=== PATIENT | male | born 1960 | race Caucasian/White ===

== ENCOUNTER 2022-01-04 16:00 | Emergency (ER) | payer OTHER ==
[~2022-01-04] VITALS: Ht 175.3 cm; Wt 90.0 kg
[2022-01-04 17:33] LABS: CLARITY URINE CLEAR (CLEAR); COLOR URINE DARK YELLOW (YELLOW); KETONES URINE 1+ (NEGATIVE); LEUKOCYTE ESTERASE URINE 2+ (NEGATIVE); NITRITE URINE NEGATIVE (NEGATIVE); OCCULT BLOOD URINE NEGATIVE (NEGATIVE); PH URINE 5.5 (4.5-8.0); PROTEIN URINE TRACE (NEGATIVE); SPECIFIC GRAVITY URINE 1.033 (1.005-1.030)
[2022-01-04 17:36] LABS: HEMATOCRIT. 36.9 % (42.0-52.0); HEMOGLOBIN. 12.1 g/dL (14.0-18.0); MEAN CORPUSCULAR HEMOGLOBIN 28.1 pg (28.0-32.0); MEAN CORPUSCULAR VOLUME 85.5 fL (80.0-94.0); MEAN PLATELET VOLUME 9.3 fl (7.4-10.4); PLATELET 162 x1000/uL (130-400); RED BLOOD CELL COUNT 4.32 mill/uL (4.7-6.1); RED CELL DISTRIBUTION WIDTH 15.7 % (11.6-14.6)
[2022-01-04 17:46] LABS: CHLORIDE 110 mEq/L (98-107)
[2022-01-04 17:50] LABS: ETHANOL BLOOD < 10 mg/dL
[2022-01-04 17:57] LABS: *BARBITURATES SCREEN URINE NEGATIVE (NEGATIVE); CANNABINOID URINE SCREEN PRESUMTIVE POSITIVE (NEGATIVE); OPIATES URINE SCREEN NEGATIVE (NEGATIVE); PHENCYCLIDINE URINE SCREEN NEGATIVE (NEGATIVE)
[2022-01-04 17:58] LABS: *AMPHETAMINES SCREEN URINE NEGATIVE (NEGATIVE); *BENZODIAZEPINES SCREEN URINE NEGATIVE (NEGATIVE); *COCAINE SCREEN URINE NEGATIVE (NEGATIVE); METHADONE URINE SCREEN NEGATIVE (NEGATIVE)
[2022-01-04] MEDS ORDERED: LORAZEPAM 1MG TABLET PO ONE (18:00)
[2022-01-04] MEDS ORDERED: OLANZAPINE 10 MG/VIAL IM ONE (18:00)
[2022-01-04 19:21] LABS: PLATELET ESTIMATE NORMAL
[2022-01-05] MEDS ORDERED: LORAZEPAM 2MG/ML CPJ IV STA (07:47)
[2022-01-05] MEDS ORDERED: HALOPERIDOL LACTATE 5MG/ML VIAL IM STA (07:47)
[2022-01-05] MEDS: CHLORPROMAZINE HCL 25 MG TABLET PO SCH (16:25)
[2022-01-05] MEDS: DIVALPROEX SODIUM 250MG DR TABLET PO SCH (16:25)
[2022-01-06] MEDS: CHLORPROMAZINE HCL 25 MG TABLET PO SCH ×3 (00:20→14:39)
[2022-01-06] MEDS: DIVALPROEX SODIUM 250MG DR TABLET PO SCH ×3 (00:21→14:39)
[2022-01-06] MEDS ORDERED: ACETAMINOPHEN 325MG TABLET PO ONE (08:30)
[2022-01-06] MEDS ORDERED: LORAZEPAM 1MG TABLET PO ONE (08:30)
[2022-01-06 15:13] VITALS: BP 119/68
[2022-01-06] MEDS ORDERED: TEMAZEPAM 15MG CAPSULE PO PRN (21:00)
== END 2022-01-06 17:37 ==
LOC: ER 16:00
DX: F31.30 Bipolar disorder, current episode depressed, mild or moderate severity, unspecified (principal); R45.851 Suicidal ideations; Z20.822 Contact with and (suspected) exposure to COVID-19; G47.00 Insomnia, unspecified; R73.9 Hyperglycemia, unspecified; R03.0 Elevated blood-pressure reading, without diagnosis of hypertension; F12.90 Cannabis use, unspecified, uncomplicated; R51.9 Headache, unspecified; S00.83XA Contusion of other part of head, initial encounter; X58.XXXA Exposure to other specified factors, initial encounter; Y93.89 Activity, other specified; Y92.89 Other specified places as the place of occurrence of the external cause; Z91.14 Patient's other noncompliance with medication regimen; Z75.1 Person awaiting admission to adequate facility elsewhere
CPT/HCPCS: 36415; 70450; 80053; 80305; 80307; 80320; 80329; 81003; 85025; 96372; 96374; 99285; C9803; J1630; J2060; J3490; U0003; U0005; Q0161; G0480